=== PATIENT | male | born 1995 | race Caucasian/White ===

== ENCOUNTER 2025-01-27 00:38 | Emergency (ER) | payer SELFPAY ==
[~2025-01-27] VITALS: Ht 172.7 cm; Wt 78.6 kg
[~2025-01-27 00:38] MED LIST: IBUP-2028 MT; IBUP-2029 MT
[2025-01-27 00:51] VITALS: BP 103/62; PULSE 81; RESP 16; TEMP 37.1; O2SAT 97
== END 2025-01-27 04:39 | disposition home or self-care (01) ==
LOC: ER 00:38
DX: B87.9 Myiasis, unspecified (principal)
CPT/HCPCS: 99282